=== PATIENT | male | born 1980 | race Caucasian/White ===

== ENCOUNTER 2025-04-16 15:11 | Emergency (ER) | payer BC, SELFPAY ==
[2025-04-16 15:13] VITALS: BP 165/91
--- NOTE | 2025-04-16 18:19 | ED.GENMED ---
History of Present Illness
General
Chief Complaint: Back Pain
Source: patient
Exam Limitations: none
Time Seen by Provider: 04/16/25 16:58
Nursing documentation reviewed up to this point in time: agreed with
History of Present Illness
History of Present Illness:
Patient states he cut grass on Wednesday. APprox 3 hrs later noted low back pain. Took Ibuprofen, applied ice. Pain was manageable on Wednesday but today became much worse. No prior history of back issues. Denies fever/chills, recent illness. No
radiation of pain. No bowel or bladder issues. No weakness in extremities, no saddle paresthesia. Brought self to ED for eval.
Past History
Past History
ED Past Medical History: NIDDM
ED Past Surgical History: None
Patient has exhibited threatening behavior?: No
Social History
Tobacco: Non-smoker
Alcohol: None
Drug: None
Review of Systems
Review of Systems
Allergies reviewed?: Yes
All Other Systems: ROS reviewed and negative except as documented in HPI and ROS
Constitutional: Reports no symptoms
EENT: Reports no symptoms
Respiratory: Reports no symptoms
Cardiac: Reports no symptoms
ABD/GI: Reports no symptoms
: Reports no symptoms
Musculoskeletal: Reports back pain (low bck pain)
Skin: Reports no symptoms
Neurological: Reports no symptoms
Psychiatric: Reports no symptoms
Phy Exam
General Physical Exam
General Presentation: well appearing and mild distress
General age: appears stated age
General Skin: warm and dry
General Habitus: normal
General Mental: alert
Neurological Exam
Neurological Exam: alert and oriented x3
Musculoskeletal Exam
Musculoskeletal Exam: full ROM, neuro vasc intact and other (Full ROM to head/neck upper and lower extremities. Equal strenght and sensation bilaterally)
Skin Exam
Skin Exam: normal color and warm/dry
Psychiatric Exam
Psychiatric Exam: normal mood/affect
Course
Orders/Labs/Results
Orders:
Orders
04/16/25 17:08
Lumbar Spine Complete, 4 View [CR Lumbar Spine Comp Min 4 Vw*] Urgent
Comment:
Reason For Exam: pain
04/16/25 18:15
Ketorolac [Toradol] 60 mg IM NOW STA
Vital Signs
Initial and Last Documented VS:
Initial Vital Signs
Temp Pulse Resp BP Pulse Ox
98.1 F 71 20 165/91 99
04/16/25 15:13 04/16/25 15:13 04/16/25 15:13 04/16/25 15:13 04/16/25 15:13
Last Documented Vital Signs
Temp Pulse Resp BP Pulse Ox
98.1 F 71 20 165/91 99
04/16/25 15:13 04/16/25 15:13 04/16/25 15:13 04/16/25 15:13 04/16/25 18:23
*Radiology
Radiology exam reviewed: radiology read reviewed
*Pulse Oximetry
SaO2: 99
Oxygen Mode of Delivery: Room air
Patient hypoxic: no
*Critical Care Note
Total Time (30-74mins, 75-104mins- exclusive of procedures): Not Applicable
Update Note
Update Note:
Patient to ED iwth complaint of low back pain which started after mowing lawn on Wednesday. NO radiation of pain, no bowel or bladder symptoms, no weakness in extemities. No concern for cauda equina. Pain is reproducable with movement. Recommend
ice, ibuprofen, follow up with PCP. Given rx for short course of flexeril and oxycodone. Given instructions on s/s to return to ED and he is agreeable to plan.
ED Attending Note
-
Portions of this chart may have been created with voice recognition software.� Occasional wrong word or��sound alike� substitutions may have occurred due to the inherent limitations of voice recognition software.
Discharge Plan
Departure
Patient Disposition: Home (Routine Discharge)
Date of Disposition: 04/16/25
Time of Disposition: 18:15
Patient with high blood pressure during this ER visit?: No
Condition: Good
Covid-19: Not Applicable
Discharge Problem:
Lumbar strain
Instructions: Low Back Pain (DC), Cold therapy for pain, Ibuprofen
Prescriptions:
New
oxycodone 5 mg capsule
5 mg PO Q4H PRN (Reason: Pain) Qty: 14 0RF
cyclobenzaprine 10 mg tablet
10 mg PO HS PRN (Reason: muscle spasms) Qty: 7 0RF
No Action
metformin 500 MG tablet
500 mg PO DAILY@1700
metformin 500 MG tablet
1,000 mg PO DAILY@0800
glimepiride 1 MG tablet
1 mg PO DAILY
ibuprofen 200 MG tablet
400 mg PO Q8HPRN PRN (Reason: mild pain)
cannabidiol [Epidiolex] 1 UNIT solution
2 puff inhalation HS
Patient Comments:
11/23/19 Per patient he uses a vape pen - 2:1 thc cbd for anxiety. He uses Restore or Dl Jackie
hydrocodone-acetaminophen 1 TABLET tablet
1 tab PO Q4HPRN PRN (Reason: severe pain) Qty: 16 0RF
Referrals:
Zaira Salmeron MD [Family Provider, Family Practice] - Keep scheduled appt
Interventions
Interventions:
*Risk Screen - Suicide Last Done: 04/16/25 17:25
*General Assessment Last Done: 04/16/25 15:13
*Neglect/Abuse Screening Last Done: 04/16/25 17:25
*ED- Fall Risk Assessment Last Done: 04/16/25 17:25
*ED COVID-19 Vaccine History Last Done: 04/16/25 17:25
ED-Musculoskeletal Assessment Last Done: 04/16/25 17:28
Discharge Date and Time
Print Language: AZERI
[2025-04-16] MEDS: TORADOL 60 MG IM (18:27)
== END 2025-04-16 18:40 | disposition home or self-care (01) ==
LOC: EMR 15:11
PROVIDERS: EMERGENCY PHYSICIAN Emergency Medicine; FAMILY PHYSICIAN Family Medicine
DX: S39.012A Strain of muscle, fascia and tendon of lower back, initial encounter (principal); X58.XXXA Exposure to other specified factors, initial encounter; Y93.H2 Activity, gardening and landscaping; E11.9 Type 2 diabetes mellitus without complications; Z79.84 Long term (current) use of oral hypoglycemic drugs; Z88.8 Allergy status to other drugs, medicaments and biological substances; F41.9 Anxiety disorder, unspecified
CPT/HCPCS: 99284; 96372; 72110